=== PATIENT | female | born 1995 | race Caucasian/White ===

== ENCOUNTER 2016-05-04 11:15 | Emergency (ER) | payer OTHER ==
[~2016-05-04] VITALS: Ht 162.6 cm; Wt 63.5 kg
[2016-05-04 11:20] VITALS: BP 146/87
[2016-05-04] MEDS ORDERED: birth control (11:22)
[2016-05-04] MEDS ORDERED: GUAISYP5 PO (11:49)
== END 2016-05-04 12:06 | disposition home or self-care (01) ==
LOC: M ED 11:55
DX: J06.9 Acute upper respiratory infection, unspecified (principal); B34.9 Viral infection, unspecified; Z79.3 Long term (current) use of hormonal contraceptives; Z79.899 Other long term (current) drug therapy